=== PATIENT | female | born 1980 | race Caucasian/White ===

== ENCOUNTER 2018-08-08 07:05 | Inpatient (IN) | payer MEDICAID, OTHER ==
[~2018-08-08] VITALS: Ht 170.2 cm; Wt 93.0 kg
[2018-08-08] MEDS ORDERED: PHISODERM TOP SOLN 240ML BTL TOP PRN (07:45)
[2018-08-08] MEDS ORDERED: LIDOCAINE 2% (LOCAL ANESTH.) PF 5ml SDV ID ONE (07:45)
[2018-08-08] MEDS ORDERED: WITCH HAZEL-GLYCERIN PAD TOP PRN (07:45)
[2018-08-08] MEDS ORDERED: CARBOPROST TROMETHAMINE 250 MCG/1ML VIAL IM PRN (07:45)
[2018-08-08] MEDS ORDERED: METHYLERGONOVINE MALEATE 0.2 MG/ML AMP IM PRN (07:45)
[2018-08-08] MEDS ORDERED: NALBUPHINE HCL 10 MG/1ml INJECTION IV PRN (07:45)
[2018-08-08] MEDS ORDERED: DERMOPLAST 60ML BOTTLE TOP PRN (07:45)
[2018-08-08] MEDS ORDERED: PREN-96 PO (08:17)
[2018-08-08] MEDS ORDERED: URSO300C9 PO (08:17)
[2018-08-08] MEDS: LACTATED RINGER'S 1,000 ML IV SCH ×2 (08:18→23:00)
[2018-08-08 08:33] LABS: Basophils # (auto) 0 uL; Basophils % (auto) 0.3 % (0.0-2.0); Eosinophils # (auto) 0.1 uL; Eosinophils % (auto) 1.1 % (0.0-7.0); Hematocrit 35.3 % (36.0-46.0); Hemoglobin 12.1 g/dL (12.2-16.2); Lymphocytes # (auto) 1.1 uL; Mean Corpuscular Hemoglobin 31.3 pg (28.0-32.0); Mean Corpuscular Hgb Conc. 34.2 g/dL (32.0-36.0); Mean Corpuscular Volume 91.6 fL (80.0-100.0); Monocytes # (auto) 0.9 uL; Monocytes % (auto) 8.8 % (0.0-12.0); Neutrophils # (auto) 7.8 uL; Neutrophils % (auto) 78.8 % (37.0-80.0); Platelet Count (auto) 207 10^3/uL (140-450); Red Blood Cells 3.85 10^6/uL (4.0-5.20); Red Cell Distribution Width 13.5 % (11.8-14.3); White Blood Cell 9.9 10^3/uL (4.4-10.8)
[2018-08-08 08:48] LABS: Urine Bacteria NONE SEEN /hpf (None Seen); Urine Blood Negative /uL (Negative); Urine Specific Gravity 1.013 (1.001-1.035); Urine WBC 2 /hpf (0 - 5)
[2018-08-08 08:58] LABS: INR 0.87 (0.9-1.15); Partial Thromboplastin Time 27.6 sec (23.78-33.04); Prothrombin Time 9.4 sec (9.27-12.13)
[2018-08-08 09:07] LABS: Albumin 2.5 g/dL (3.4-5.0); Bilirubin, Total 0.3 mg/dL (0.2-1.0); Calcium 8.1 mg/dL (8.5-10.1); Potassium 3.6 mmol/L (3.5-5.1); Total Protein 6.8 g/dL (6.4-8.2)
[2018-08-08] MEDS: CLINDAMYCIN 900MG IV 50 ML IV SCH ×2 (09:20→17:06)
[2018-08-09] MEDS: LACT. RINGERS/OXYTOCIN 20UNITS 1,000 ML IV SCH (00:45)
[2018-08-09] MEDS: CLINDAMYCIN 900MG IV 50 ML IV SCH ×3 (00:47→17:08)
[2018-08-09 05:08] LABS: RPR Non Reactive (Non Reactive)
[2018-08-09] MEDS: LACTATED RINGER'S 1,000 ML IV SCH ×3 (05:09→23:29)
[2018-08-09] MEDS ORDERED: ePHEDrine SULFATE 50 MG/ML AMP IV ONE (20:00)
[2018-08-09] MEDS ORDERED: NALOXONE HCL 0.4 MG/ML VIAL IV ONE (20:00)
[2018-08-09] MEDS ORDERED: LIDOCAINE HCL 2 %PF INJ 10ML AMP IJ SCH (20:00)
[2018-08-09] MEDS ORDERED: fentaNYL W ROPIVACAINE 150 ML EPI SCH (20:00)
[2018-08-09] MEDS ORDERED: fentaNYL CITRATE 100 MCG/2 ML VL IV ONE (20:00)
[2018-08-09] MEDS ORDERED: BUTORPHANOL TARTRATE 2 MG/1 ML VIAL ONE (23:18)
[2018-08-10] MEDS: LACTATED RINGER'S 1,000 ML IV SCH (00:57)
[2018-08-10] MEDS: LACT. RINGERS/OXYTOCIN 20UNITS 1,000 ML IV SCH (00:58)
[2018-08-10] MEDS ORDERED: ePHEDrine SULFATE 50 MG/ML AMP IV ONE (01:00)
[2018-08-10] MEDS ORDERED: fentaNYL W ROPIVACAINE 150 ML EPI SCH (01:00)
[2018-08-10] MEDS: CLINDAMYCIN 900MG IV 50 ML IV SCH (01:02)
[2018-08-10] MEDS ORDERED: NALOXONE HCL 0.4 MG/ML VIAL IV ONE (01:10)
[2018-08-10] MEDS ORDERED: SODIUM CHLORIDE 0.9% 500 ML IV PRN (01:15)
[2018-08-10] MEDS ORDERED: ONDANSETRON HCL 4 MG/2 ML VIAL IV PRN (01:30)
[2018-08-10] MEDS ORDERED: BUTORPHANOL TARTRATE 2 MG/1 ML VIAL IV ONE (02:00)
[2018-08-10] MEDS: IBUPROFEN 600 MG TAB PO PRN ×2 (13:36→19:10)
[2018-08-10 16:00] VITALS: BP 109/57
[2018-08-10] MEDS: CLINDAMYCIN HCL 150 MG CAP PO SCH ×2 (17:43→23:31)
[2018-08-10 18:40] VITALS: BP 123/65
[2018-08-10 23:00] VITALS: BP 118/59
[2018-08-11 03:00] VITALS: BP 101/55
[2018-08-11] MEDS: CLINDAMYCIN HCL 150 MG CAP PO SCH ×2 (05:25→11:53)
[2018-08-11] MEDS: IBUPROFEN 600 MG TAB PO PRN (05:25)
[2018-08-11 06:30] VITALS: BP 110/64
[2018-08-11] MEDS: DOCUSATE CALCIUM 240 MG CAP PO SCH (10:00)
[2018-08-11 10:45] VITALS: BP 112/55
== END 2018-08-11 12:35 | disposition home or self-care (01) | DRG 775 ==
LOC: LDRP 07:05
PROVIDERS: ADMIT Specialist; ATTEND Specialist
PROC: 10D07Z6 Extraction of Products of Conception, Vacuum, Via Natural or Artificial Opening (ICD-10-PCS; principal; 2018-08-10)
PROC: 0W8NXZZ Division of Female Perineum, External Approach (ICD-10-PCS; 2018-08-10)
PROC: 3E0R3BZ Introduction of Anesthetic Agent into Spinal Canal, Percutaneous Approach (ICD-10-PCS; 2018-08-10)
PROC: 00HU33Z Insertion of Infusion Device into Spinal Canal, Percutaneous Approach (ICD-10-PCS; 2018-08-10)
DX: O26.62 Liver and biliary tract disorders in childbirth (principal); K83.1 Obstruction of bile duct; O69.81X0 Labor and delivery complicated by cord around neck, without compression, not applicable or unspecified; O99.824 Streptococcus B carrier state complicating childbirth; O76 Abnormality in fetal heart rate and rhythm complicating labor and delivery; Z37.0 Single live birth; Z3A.37 37 weeks gestation of pregnancy; Z88.0 Allergy status to penicillin
CPT/HCPCS: 36415; 59025; 59409; 62282; 74018; 80053; 81001; 85025; 85610; 85730; 86592; 86850; 86900; 86901; 94762; 96361; 96365; 96366; 96374; J2001; J2405; J2590; J3010; J3490

== ENCOUNTER 2020-01-23 19:13 | Emergency (ER) | payer OTHER ==
[~2020-01-23] VITALS: Ht 170.2 cm; Wt 85.3 kg
[~2020-01-23 19:13] MED LIST: PREN-96 PO; URSO300C9 PO
[2020-01-23 20:25] LABS: Urine Bacteria FEW /hpf (None Seen); Urine Blood Negative /uL (Negative); Urine Specific Gravity 1.005 (1.001-1.035); Urine WBC <1 /hpf (0 - 5)
[2020-01-23 21:38] VITALS: BP 104/65
== END 2020-01-23 21:58 | disposition home or self-care (01) ==
LOC: ER 19:17
DX: O26.892 Other specified pregnancy related conditions, second trimester (principal); R10.30 Lower abdominal pain, unspecified; Z3A.15 15 weeks gestation of pregnancy; Z88.0 Allergy status to penicillin
CPT/HCPCS: 36415; 76805; 81001; 84702

== ENCOUNTER 2020-07-23 19:26 | Observation (INO) | payer OTHER ==
[2020-07-23 21:34] LABS: Basophils # (auto) 0 10 ^3/uL (0-0.2); Basophils % (auto) 0.5 % (0.0-2.0); Eosinophils # (auto) 0.1 10 ^3/uL (0-0.8); Eosinophils % (auto) 0.9 % (0.0-7.0); Hematocrit 34.9 % (36.0-46.0); Hemoglobin 11.7 g/dL (12.2-16.2); Lymphocytes # (auto) 1.7 10 ^3/uL (0.4-5.4); Lymphocytes % (auto) 15.7 % (10.0-50.0); Mean Corpuscular Hgb Conc. 33.5 g/dL (32.0-36.0); Mean Corpuscular Volume 89.3 fL (80.0-100.0); Monocytes # (auto) 0.8 10 ^3/uL (0-1.3); Monocytes % (auto) 7.8 % (0.0-12.0); Neutrophils % (auto) 75.1 % (37.0-80.0); Nucleated Red Blood Cells % 0.1 %; Platelet Count (auto) 197 10^3/uL (140-450); Red Blood Cells 3.91 10^6/uL (4.0-5.20); Red Cell Distribution Width 14.8 % (11.8-14.3); White Blood Cell 10.6 10^3/uL (4.4-10.8)
[2020-07-23 21:49] LABS: INR 0.89 (0.9-1.15); Partial Thromboplastin Time 24.9 sec (23.0-31.2)
[2020-07-23 21:50] LABS: Albumin 2.9 g/dL (3.4-5.0); Calcium 9.1 mg/dL (8.5-10.1); Potassium 3.8 mmol/L (3.5-5.1)
[2020-07-23 21:53] LABS: BUN/Creatinine Ratio 14.1; Bilirubin, Total 0.2 mg/dL (0.2-1.0); Uric Acid 4.7 mg/dL (2.6-6.0)
[2020-07-23 22:15] LABS: Urine Bacteria FEW /hpf (None Seen); Urine Blood Negative /uL (Negative); Urine Specific Gravity 1.006 (1.001-1.035); Urine WBC <1 /hpf (0 - 5)
== END 2020-07-23 22:18 | disposition home or self-care (01) ==
LOC: LDRP 19:26
PROVIDERS: ADMIT Specialist; ATTEND Specialist
DX: O48.0 Post-term pregnancy (principal); Z3A.40 40 weeks gestation of pregnancy; Z79.899 Other long term (current) drug therapy
CPT/HCPCS: 36415; 59025; 76818; 80053; 81001; 81002; 82570; 84156; 84550; 85025; 85362; 85610; 85730; G0378

== ENCOUNTER 2020-07-25 12:56 | Observation (INO) | payer OTHER | END 2020-07-25 15:05 | disposition home or self-care (01) | LOC: LDRP 12:56 | PROVIDERS: ADMIT Specialist; ATTEND Specialist | DX: O48.0 Post-term pregnancy (principal); Z3A.40 40 weeks gestation of pregnancy | CPT/HCPCS: 59025; 76818; 81002; G0378 ==

== ENCOUNTER 2020-07-26 07:13 | Inpatient (IN) | payer OTHER ==
[~2020-07-26] VITALS: Ht 170.2 cm; Wt 99.8 kg
[2020-07-26] MEDS ORDERED: LACT. RINGERS/OXYTOCIN 20UNITS 1,000 ML IV SCH (07:27)
[2020-07-26] MEDS ORDERED: METHYLERGONOVINE MALEATE 0.2 MG/ML AMP IM PRN (07:30)
[2020-07-26] MEDS ORDERED: DERMOPLAST 60ML BOTTLE TOP PRN (07:30)
[2020-07-26] MEDS ORDERED: PHISODERM TOP SOLN 240ML BTL TOP PRN (07:30)
[2020-07-26] MEDS ORDERED: LIDOCAINE 2%HCL (LOCAL ANESTH.) INJ 20ML MDV ID PRN (07:30)
[2020-07-26 08:03] LABS: Urine WBC None Seen /hpf (0 - 5)
[2020-07-26] MEDS: LACTATED RINGER'S 1,000 ML IV SCH ×2 (08:20→16:31)
[2020-07-26] MEDS: miSOPROStol 50 MCG per PRE-CUT 1/2 TAB PO PRN ×3 (08:31→16:32)
[2020-07-26 08:32] LABS: Basophils # (auto) 0 10 ^3/uL (0-0.2); Basophils % (auto) 0.5 % (0.0-2.0); Eosinophils # (auto) 0.1 10 ^3/uL (0-0.8); Eosinophils % (auto) 0.8 % (0.0-7.0); Hematocrit 35.9 % (36.0-46.0); Hemoglobin 11.6 g/dL (12.2-16.2); Lymphocytes # (auto) 1.1 10 ^3/uL (0.4-5.4); Lymphocytes % (auto) 13.4 % (10.0-50.0); Mean Corpuscular Hemoglobin 29.3 pg (28.0-32.0); Mean Corpuscular Hgb Conc. 32.3 g/dL (32.0-36.0); Mean Corpuscular Volume 90.7 fL (80.0-100.0); Monocytes # (auto) 0.5 10 ^3/uL (0-1.3); Monocytes % (auto) 6.7 % (0.0-12.0); Neutrophils # (auto) 6.4 10 ^3/uL (1.6-8.6); Neutrophils % (auto) 78.6 % (37.0-80.0); Platelet Count (auto) 193 10^3/uL (140-450); Red Blood Cells 3.96 10^6/uL (4.0-5.20); Red Cell Distribution Width 14.7 % (11.8-14.3); White Blood Cell 8.2 10^3/uL (4.4-10.8)
[2020-07-26 08:33] LABS: Urine Bacteria NONE SEEN /hpf (None Seen); Urine Blood Negative /uL (Negative)
[2020-07-26 08:38] LABS: INR 0.91 (0.9-1.15); Partial Thromboplastin Time 24.9 sec (23.0-31.2)
[2020-07-26 08:42] LABS: Alcohol, Urine < 3.0 mg/dL (0-10); Amphetamine Screen, Urine NEGATIVE (NEGATIVE); Barbiturate Scree,Urine NEGATIVE (NEGATIVE); Benzodiazephine Screen, Urine NEGATIVE (NEGATIVE); Cannabinoid Screen, Urine NEGATIVE (NEGATIVE); Cocaine Screen, Urine NEGATIVE (NEGATIVE); Opiate Scree,Urine NEGATIVE (NEGATIVE); Phencyclidine Screen, Urine NEGATIVE (NEGATIVE)
[2020-07-26 08:44] LABS: Potassium 3.7 mmol/L (3.5-5.1)
[2020-07-26 08:51] LABS: Albumin 2.7 g/dL (3.4-5.0); BUN/Creatinine Ratio 10.8; Bilirubin, Total 0.2 mg/dL (0.2-1.0); Calcium 8.9 mg/dL (8.5-10.1); Total Protein 6.7 g/dL (6.4-8.2); Uric Acid 5.3 mg/dL (2.6-6.0)
[2020-07-26] MEDS ORDERED: CLINDAMYCIN 600MG IV 50 ML IV SCH ×2 (14:00→17:00)
[2020-07-26] MEDS ORDERED: NALOXONE HCL 0.4 MG/ML VIAL IV ONE (17:45)
[2020-07-26] MEDS ORDERED: ROPIVACAINE HCL 100 ML EPI SCH (17:45)
[2020-07-26] MEDS ORDERED: LIDOCAINE HCL 2 %PF INJ 10ML AMP IJ ONE (17:45)
[2020-07-26] MEDS ORDERED: ePHEDrine SULFATE 50 MG/ML AMP IV ONE (17:45)
[2020-07-26] MEDS ORDERED: fentaNYL CITRATE 100 MCG/2 ML VL IV ONE (17:45)
[2020-07-26] MEDS ORDERED: OXYTOCIN 10UNIT/ML 1ML VIAL ONE (19:13)
[2020-07-26] MEDS: IBUPROFEN 600 MG TAB PO PRN (22:18)
[2020-07-26 23:00] VITALS: BP 134/63
[2020-07-26] MEDS ORDERED: RHO (D) IMMUNE GLOBULIN 300 MCG INJ IM ONE (23:15)
[2020-07-27 03:30] VITALS: BP 129/76
[2020-07-27] MEDS: IBUPROFEN 600 MG TAB PO PRN ×3 (03:54→16:27)
[2020-07-27] MEDS: WITCH HAZEL-GLYCERIN PAD TOP PRN ×2 (03:55→16:27)
[2020-07-27 07:00] VITALS: BP 122/64
[2020-07-27 11:00] VITALS: BP 128/76
[2020-07-27 14:37] VITALS: BP 130/71
[2020-07-27 19:00] VITALS: BP 134/75
--- NOTE | 2020-07-27 21:30 | NUR ---
IV removal IV DC'd with sterile technique, catheter fully intact. Pressure dressing applied to site. Patient tolerated procedure well. Discharged with aftercare instructions per MD. NOTE:
[2020-07-29 05:07] LABS: RPR Non Reactive (Non Reactive)
== END 2020-07-27 22:55 | disposition home or self-care (01) | DRG 806 ==
LOC: LDRP 07:13
PROVIDERS: ADMIT Specialist; ATTEND Specialist
PROC: 10E0XZZ Delivery of Products of Conception, External Approach (ICD-10-PCS; principal; 2020-07-26)
PROC: 0W8NXZZ Division of Female Perineum, External Approach (ICD-10-PCS; 2020-07-26)
DX: O48.0 Post-term pregnancy (principal); O72.1 Other immediate postpartum hemorrhage; Z37.0 Single live birth; O99.824 Streptococcus B carrier state complicating childbirth; Z3A.40 40 weeks gestation of pregnancy; Z03.818 Encounter for observation for suspected exposure to other biological agents ruled out
CPT/HCPCS: 36415; 59025; 59409; 80053; 80307; 81001; 84550; 85025; 85610; 85730; 86592; 86850; 86900; 86901; 87426; 96360; 96361; 96366; G0378; J3490